=== PATIENT | female | born 1985 | race Two or more races ===

== ENCOUNTER 2021-09-19 15:40 | Emergency (ER) | payer MEDICAID, OTHER ==
[~2021-09-19] VITALS: Ht 167.6 cm; Wt 72.6 kg
[2021-09-19 16:23] LABS: Basophils # (auto) 0.1 10 ^3/uL (0-0.2); Basophils % (auto) 1.3 % (0.0-2.0); Eosinophils # (auto) 0.5 10 ^3/uL (0-0.8); Eosinophils % (auto) 9.4 % (0.0-7.0); Hematocrit 39.1 % (36.0-46.0); Hemoglobin 13.2 g/dL (12.2-16.2); Lymphocytes # (auto) 2.7 10 ^3/uL (0.4-5.4); Lymphocytes % (auto) 48.8 % (10.0-50.0); Mean Corpuscular Hemoglobin 28.6 pg (28.0-32.0); Mean Corpuscular Hgb Conc. 33.8 g/dL (32.0-36.0); Mean Corpuscular Volume 84.8 fL (80.0-100.0); Monocytes # (auto) 0.4 10 ^3/uL (0-1.3); Monocytes % (auto) 7.7 % (0.0-12.0); Neutrophils # (auto) 1.8 10 ^3/uL (1.6-8.6); Neutrophils % (auto) 32.8 % (37.0-80.0); Nucleated Red Blood Cells % 0.1 %; Red Blood Cells 4.61 10^6/uL (4.0-5.20); Red Cell Distribution Width 13.2 % (11.8-14.3); White Blood Cell 5.6 10^3/uL (4.4-10.8)
[2021-09-19 16:42] LABS: Albumin 3.6 g/dL (3.4-5.0); Calcium 8.8 mg/dL (8.5-10.1); Potassium 3.1 mmol/L (3.5-5.1)
[2021-09-19 16:46] LABS: BUN/Creatinine Ratio 10.3; Bilirubin, Total 0.6 mg/dL (0.2-1.0); Total Protein 8.2 g/dL (6.4-8.2)
[2021-09-19 18:20] VITALS: BP 129/78
[2021-09-19] MEDS ORDERED: ISON300T68 PO (19:00)
== END 2021-09-19 21:31 | disposition home or self-care (01) ==
LOC: ER 15:40 → EDBD 15:40 → ER 21:31
DX: R76.11 Nonspecific reaction to tuberculin skin test without active tuberculosis (principal)
CPT/HCPCS: 36415; 80053; 83605; 85025; 86703; 87070; 87077; 87186; 87205

== ENCOUNTER 2024-11-07 11:00 | Emergency (ER) | payer MEDICAID ==
[~2024-11-07] VITALS: Ht 165.1 cm; Wt 82.0 kg
[~2024-11-07 11:00] MED LIST: ISON300T68 PO
[2024-11-07 11:10] VITALS: BP 128/78; PULSE 61; RESP 18; TEMP 98.7; O2SAT 98
--- NOTE | 2024-11-07 11:19 | ED.PDOC ---
Musculoskeletal HPI Comments A 39 YEAR OLD FEMALE PRESENTS TO THE ED WITH COMPLAINT OF LEFT WRIST AND ARM PAIN WITH TINGLING SENSATION. PATIENT STATES SHE HAS BEEN EXPERIENCING LEFT WRIST/HAND PAIN FOR THE PAST 2 WEEKS AND BEGAN TO EXPERIENCING NUMBNESS/TINGLING SENSATION IN HER LEFT ARM TODAY, PROMPTING HER TO COME TO THE ED FOR EVALUATION. PATIENT NOTES SHE HAS A HISTORY OF ANXIETY, BUT IS NOT SURE IF THIS IS WHAT IS CAUSING HER SYMPTOMS AT THIS TIME. PATIENT DENIES FEVER, CHILLS, SHORTNESS OF BREATH, CHEST PAIN, ABDOMINAL PAIN, NAUSEA, VOMITING, HEADACHE, OR OTHER COMPLAINTS. NO OTHER SYMPTOMS OR MODIFYING FACTORS AT THIS TIME. PATIENT IS ALERT, ORIENTED X 4, AND HAS STEADY GAIT. Chief Complaint: Upper Extremity Time Seen by MD: 11:10 Primary Care Provider: UNK Reviewed Notes: Nurses Notes, Medications, Allergies Allergies: Coded Allergies: NO KNOWN ALLERGIES (Unverified , 11/07/24) Home Meds Active Scripts Isoniazid (Isoniazid) 300 Mg Tab, 300 MG PO DAILY for 30 Days, #30 TAB 8 Refills Prov:RASHIDA INTERIANO MD 09/19/21 Information Source: Patient Mode of Arrival: Ambulatory Location: Left Extremity Location: Arm, Wrist Timing: Weeks Prehospital treatment: None Severity: Moderate Able to Move Extremity: Yes Bear Weight: Fully Pain: Moderate Mechanism: No Trauma, Spontaneous Circumstances: Spontaneous Onset of Symptoms: Spontaneous Symptoms: Pain DVT Risk Factors: NONE Last Tetanus: Unknown Associated signs and symptoms: None Past Medical History PAST MEDICAL HISTORY: Anxiety Surgical History: Denies all surgeries SPECIAL COLLECTIONS LIBRARIAN History: No Pertinent SPECIAL COLLECTIONS LIBRARIAN History Family History Family History: Reviewed,noncontributory to illness, No family hx of Cancer, No family hx of DM, No family hx of Heart kyleigh, No family hx of HTN, No family hx ofKidney kyleigh, No family hx of Liver kyleigh, No family hx of Lung kyleigh, No family hx of Stroke Social History Smoker: Non-Smoker Alcohol: Denies ETOH Use Drugs: Denies Drug Use Lives In: Home Constitutional: denies: chills, diaphoresis, fatigue, fever, malaise, sweats, weakness, others EENTM: denies: blurred vision, double vision, ear bleeding, ear discharge, ear drainage, ear pain, ear ringing, eye pain, eye redness, hearing loss, mouth pain, mouth swelling, nasal discharge, nose bleeding, nose congestion, nose pain, photophobia, tearing, throat pain, throat swelling, voice changes, others Respiratory: denies: cough, hemoptysis, orthopnea, SOB at rest, shortness of breath, SOB with excertion, stridor, wheezing, others Cardiovascular: denies: chest pain, dizzy spells, diaphoresis, Dyspnea on exertion, edema, irregular heart beat, left arm pain, lightheadedness, palpitations, PND, syncope, others Gastrointestinal: denies: abdomen distended, abdominal pain, blood streaked bowels, constipated, diarrhea, dysphagia, difficulty swallowing, hematemesis, melena, nausea, poor appetite, poor fluid intake, rectal bleeding, rectal pain, vomiting, others Genitourinary: denies: abnormal vagina bleeding, burning, dyspareunia, dysuria, flank pain, frequency, hematuria, incontinence, pain, , vagina discharge, urgency, others Neurological: reports: tingling; denies: dizziness, fainting, headache, left sided numbness, left sided weakness, numbness, paresthesia, pre-existing deficit, right sided numbness, right sided weakness, seizure, speech problems, tremors, weakness, others Musculoskeletal: reports: muscle pain, neck pain, others (LEFT HAND PAIN THAT RADIATES LEFT ARM WITH NUMBNESS/TINGLING SENSATION); denies: back pain, gout, joint pain, joint swelling, muscle stiffness Integumetry: denies: bruises, change in color, change in hair/nails, dryness, laceration, lesions, lumps, rash, wounds, others Allergic/Immunocompromised: denies: Difficulty Healing, Frequent Infections, Hives, Itching, others Hematologic/Lymphatic: denies: anemia, blood clots, easy bleeding, easy bruising, swollen glands, others Endocrine: denies: excessive hunger, excessive sweating, excessive thirst, excessive urination, flushing, intolerance to cold, intolerance to heat, unexplained weight gain, unexplained weight loss, others Psychiatric: denies: anxiety, bipolar disorder, depression, hopeless, panic disorder, schizophrenia, sleepless, suicidal, others All Other Systems: Reviewed and Negative Physical Exam General Appearance: Mild Distress HEENT: Normal ENT Inspection, PERRL/EOMI, Pharynx Normal, TMs Normal Neck: Full Range of Motion, Normal Inspection, Supple, Tender Lateral (AND MUSCLE SPASM ON LEFT AND POSTERIOR NECK, NO BONY TENDERNESS, SWELLING AND DEFORMITY. ) Respiratory: Chest Non-Tender, Lungs Clear, No Accessory Muscle Use, No Respiratory Distress, Normal Breath Sounds Cardiovascular: No Edema, No JVD, No Murmur, No Gallop, Normal Peripheral Pul ses, Regular Rate/Rhythm Breast Exam: Deferred Gastrointestinal: No Organomegaly, Non Tender, No Pulsatile Mass, Normal Bowel Sounds, Soft Genitalia: Deferred Pelvic: Deferred Rectal: Deferred Extremities: No calf tenderness, Normal capillary refill, Normal inspection, Normal range of motion, Non-tender, No pedal edema, Other (NO REDNESS AND SWELLING ON LEFT UPPER EXTREMITY, NO DVT SIGNS. ) Musculoskeletal : Apperance: Normal Neurologic: Alert, dietist II-XII nml as Tested, No Motor Deficits, Normal Affect, Normal Mood, No Sensory Deficits Cerebellar Function: Normal Reflexes: Normal Skin: Dry, Normal Color, Warm Peripheral Pulses: 2+ carotid (R), 2+ carotid (L), 2+ Radial (R), 2+ Radial (L) Lymphatic: No Adenopathy Was a procedure done? Was a procedure done?: No Differential Diagnosis EXT Differential Diagnosis: Sprain, DJD, Strain, Arthritis Other Differential Diagnosis CARPAL TUNNEL SYNDROME, CERVICAL RADICULOPATHY, ANXIETY REACTION X-Ray, Labs, Meds, VS Vital Signs Date Time Temp Pulse Resp B/P (MAP) Pulse Ox O2 Delivery O2 Flow Rate FiO2 11/07/24 11:10 98.7 61 18 128/78 (95) 98 98.7 Lab Test 11/07/24 11:26 11/07/24 11:17 Range/Units White Blood Count 4.5 4.4-10.8 10^3/uL Red Blood Count 4.78 4.0-5.20 10^6/uL Hemoglobin 13.4 12.2-16.2 g/dL Hematocrit 40.9 36.0-46.0 % Mean Corpuscular Volume 85.6 80.0-100.0 fL Mean Corpuscular Hemoglobin 28.0 28.0-32.0 pg Mean Corpuscular Hemoglobin Concent 32.7 32.0-36.0 g/dL Red Cell Distribution Width 13.9 11.8-14.3 % Platelet Count 244 140-450 10^3/uL Mean Platelet Volume 9.7 6.9-10.8 fL Neutrophils (%) (Auto) 37.8 37.0-80.0 % Lymphocytes (%) (Auto) 47.9 10.0-50.0 % Monocytes (%) (Auto) 8.2 0.0-12.0 % Eosinophils (%) (Auto) 4.2 0.0-7.0 % Basophils (%) (Auto) 1.9 0.0-2.0 % Neutrophils # (Auto) 1.7 1.6-8.6 10 ^3/uL Lymphocytes # (Auto) 2.2 0.4-5.4 10 ^3/uL Monocytes # (Auto) 0.4 0-1.3 10 ^3/uL Eosinophils # (Auto) 0.2 0-0.8 10 ^3/uL Basophils # (Auto) 0.1 0-0.2 10 ^3/uL Nucleated Red Blood Cells 0.2 % Sodium Level 139 136-145 mmol/L Potassium Level 3.7 3.5-5.1 mmol/L Chloride Level 105 98-107 mmol/L Carbon Dioxide Level 25 20-31 mmol/L Anion Gap 9 5-15 Blood Urea Nitrogen 6 L 9-23 mg/dL Creatinine 0.74 0.550-1.02 mg/dL Glomerular Filtration Rate Calc 106 >90 mL/min BUN/Creatinine Ratio 8.1 L 10.0-20.0 Serum Glucose 81 74-106 mg/dL Calcium Level 9.9 8.7-10.4 mg/dL Troponin I High Sensitivity 3 L </=34 ng/L Urine Color Yellow Yellow Urine Clarity Hazy H Clear Urine pH 5.0 5.0-9.0 Urine Specific [place] 1.021 1.001-1.035 Urine Protein Negative Negative Urine Ketones Negative Negative Urine Blood Negative Negative /uL Urine Nitrite Negative Negative Urine Bilirubin Negative Negative Urine Urobilinogen Normal Negative mg/dL Urine Leukocyte Esterase Trace Negative /uL Urine RBC 4 0 - 4 /hpf Urine Microscopic WBC 4 0-5 /HPF Urine Squamous Epithelial Cells Few <5 /hpf Urine Bacteria Few H None Seen /hpf Urine Mucus Few None Seen Urine Glucose Normal Normal mg/dL Urine Test Negative Negative INDICATION: NECK PAIN TO LEFT UPPER EXTREMITY TECHNIQUE: 3 views of the cervical spine were obtained. COMPARISON: None FINDINGS: The cervical spine is visualized from C1-C7. There is loss of the normal cervical lordosis which can be positional. No fractures or subluxations are identified. Multilevel degenerative changes of the spine Alignment appears unremarkable. Prevertebral soft tissues are within normal limits. IMPRESSION: No acute fracture or subluxation ATED BY: DANIEL QUINTERO MD DICTATED DATE/TIME: 11/07/241227 SIGNED BY: DANIEL QUINTERO MD SIGNED DATE/TIME: 11/07/241227 CC: X-Ray, Labs, Meds, VS Comment EXTERNAL MEDICAL RECORDS REVIEWED: [NONE] INDEPENDENT HISTORIANS: [NONE] SOCIAL DETERMINANTS OF HEALTH: [NONE] LABS ORDERED: CBC, BMP, TROP, UA, URINE REVIEWED AND INTERPRETED RESULTS: IMAGING ORDERED: XR C-SPINE: [INTERPRETED BY ME. NO ACUTE FINDINGS. NO FRACTURES OR DISLOCATION. PENDING RADIOLOGIST REPORT.] TREATMENTS ORDERED: NONE PROCEDURES PERFORMED: NONE CRITICAL CARE TIME: NONE I HAVE DISCUSSED THE PATIENT WITH THE ATTENDING PHYSICIAN DR. LINDQUIST AND HE AGREES WITH THE PATIENT'S PLAN OF CARE AND DISPOSITION. BASED ON HISTORY OF PRESENT ILLNESS, AND PHYSICAL EXAM, PATIENT WILL BE DISCHARGED HOME. SHARED DECISION MAKING: DISCUSSED WITH PATIENT THAT THEIR WORKUP WAS NORMAL. PATIENT INSTRUCTED TO FOLLOW UP WITH PRIMARY CARE PROVIDER IN 1-2 DAYS FOR RE- EVALUATION OF SYMPTOMS. PATIENT VERBALIZES UNDERSTANDING TO RETURN TO ED FOR NEW OR WORSENING SYMPTOMS OR IF FOLLOW UP WITH PCP CANNOT BE OBTAINED. PATIENT FEELS COMFORTABLE GOING HOME AT THIS TIME. ALL QUESTIONS ADDRESSED AT TIME OF DISCHARGE. Images Reviewed?: Images reviewed and evaluated by me Time of 1ST Reevaluation: 13:00 Reevaluation 1ST: Improved Patient Education/Counseling: Diagnosis, Treatment, Need For Follow Up Family Education/Counseling: Diagnosis, Treatment, Need For Follow Up Medical Screening: No EMC Exist At This Time Departure 1 Departure Time of Disposition: 13:00 Impression: Primary Impression: DDD (degenerative disc disease), cervical Additional Impression: Cervical radiculopathy Disposition: 01 HOME / SELF CARE / HOMELESS Condition: Stable Additional Instructions: FOLLOW-UP WITH PCP IN 1 TO 2 DAYS. TAKE MEDICATIONS PRESCRIBED. RETURN TO ED FOR ANY NEW OR WORSENING SYMPTOMS. e-Prescriptions Prednisone (Prednisone) 20 Mg Tab 40 MG PO DAILY, #20 TAB Prov: DESIREE AGUILAR 11/07/24 Ibuprofen (Ibuprofen) 800 Mg Tab 1 TAB PO TID, #30 TAB Prov: DESIREE AGUILAR 11/07/24 Discharged With: Self, Spouse Critical Care Note Critical Care Time?: No Stability Stability form required: No I personally scribed for DESIREE AGUILAR ([email or web address]) on 11/07/24 at 11:19. Electronically submitted by Serg Nolan ([employer]). I personally scribed for DESIREE AGUILAR ([email or web address]) on 11/07/24 at 12:19. Electronically submitted by Serg Nolan ([employer]). I personally scribed for DESIREE AGUILAR ([email or web address]) on 11/07/24 at 12:43. Electronically submitted by Serg Nolan ([employer]). DESIREE AGUILAR Nov 07, 2024 11:19
[2024-11-07 11:34] LABS: Urine Protein, UAD Negative (Negative)
[2024-11-07 11:47] LABS: Hematocrit 40.9 % (36.0-46.0); Hemoglobin 13.4 g/dL (12.2-16.2); Mean Corpuscular Hemoglobin 28.0 pg (28.0-32.0); Mean Corpuscular Volume 85.6 fL (80.0-100.0); Nucleated Red Blood Cells % 0.2 %
[2024-11-07 11:57] LABS: Anion Gap 9 (5-15); Carbon Dioxide 25 mmol/L (20-31); Chloride 105 mmol/L (98-107); Potassium 3.7 mmol/L (3.5-5.1); Sodium 139 mmol/L (136-145)
[2024-11-07 11:58] LABS: Calcium 9.9 mg/dL (8.7-10.4)
[2024-11-07 12:03] LABS: BUN/Creatinine Ratio 8.1 (10.0-20.0); Glucose 81 mg/dL (74-106)
[2024-11-07 12:10] LABS: Blood Urea Nitrogen 6 mg/dL (9-23)
--- NOTE | 2024-11-07 12:30 | DVH ---
INDICATION: NECK PAIN TO LEFT UPPER EXTREMITY TECHNIQUE: 3 views of the cervical spine were obtained. COMPARISON: None FINDINGS: The cervical spine is visualized from C1-C7. There is loss of the normal cervical lordosis which can be positional. No fractures or subluxations are identified. Multilevel degenerative changes of the spine Alignment appears unremarkable. Prevertebral soft tissues are within normal limits. IMPRESSION: No acute fracture or subluxation
[2024-11-07] MEDS ORDERED: IBUP-1456 PO (12:52)
[2024-11-07] MEDS ORDERED: PRED20TA2 PO (12:52)
== END 2024-11-07 12:59 | disposition home or self-care (01) ==
LOC: ER 11:06
DX: M50.10 Cervical disc disorder with radiculopathy, unspecified cervical region (principal); F41.9 Anxiety disorder, unspecified; Z79.899 Other long term (current) drug therapy
CPT/HCPCS: 36415; 72040; 80048; 81001; 81025; 84484; 85025